=== PATIENT | male | born 1970 | race African-American/Black ===

== ENCOUNTER 2018-11-18 12:10 | Inpatient (IN) | payer OTHER ==
[2018-11-18] MEDS ORDERED: Acetaminophen 325 MG TAB PO PRN (14:03)
[2018-11-18] MEDS ORDERED: Senokot S 8.6-50 MG TAB PO PRN (14:03)
[2018-11-18] MEDS ORDERED: HYDROcodone/Acetaminophen 5/325 mg Tablet PO PRN (14:03)
--- NOTE | 2018-11-18 15:28 | HP ---
PRIMARY CARE PHYSICIAN: Dr. Castillo. CHIEF COMPLAINT: Right-sided weakness, resolved. HISTORY OF PRESENT ILLNESS: Mr. Matute is an 48-year-old male, who reported to the emergency room at [facility] after he experienced about 20-30 minutes of right-sided weakness, right-sided droop, slurred speech. Reports that he was doing his normal daily activities while at work and then he felt "weird," noticed that he was having trouble, he could see his hand, but was having trouble coordinating both his arm and his right leg. Reports that coworkers asked him if he was okay. Reports that they told him he had some slurred speech, that he was not acting himself, and that he was drooling. By the time they called EMS and he reported to the emergency room, he was feeling better. Reports symptoms have resolved. Denied any headache, any current dizziness, any vision changes. Denied any chest pain or shortness of breath. Denies any past medical history. Denies taking any medications daily. The patient was sent to [facility] Emergency Room for admission for a TIA workup. REVIEW OF SYSTEMS: The patient reported right-sided weakness, speech changes, has some slurring of his words, expressive dysphagia, some drooling. Reports that these have resolved. All other symptoms are negative unless mentioned in the HPI. PAST MEDICAL HISTORY: None. PAST SURGICAL HISTORY: None. PSYCHIATRIC HISTORY: None. SOCIAL HISTORY: The patient uses tobacco. He smokes cigars 2 to 3 per day. He is a former drug user, abused marijuana. Denies daily drinking. He reports that he drinks socially once or twice a week. ALLERGIES: NONE. CURRENT MEDICATIONS: None. PHYSICAL EXAMINATION: VITAL SIGNS: Blood pressure is 147/95, pulse is 66, temp is 97.6, O2 sats are 96% on room air. CONSTITUTIONAL: The patient is in no apparent distress. He is alert and oriented to person, place, and time. HEENT: Head is atraumatic and normocephalic. Eyes; eyelids are normal to inspection. Pupils equally round and reactive to light. ENT mucous membranes are moist. Mouth exam is normal. NECK: Normal range of motion. Trachea is midline. RESPIRATORY: Chest expansion is equal. Breath sounds are clear. CARDIOVASCULAR: Regular rate and rhythm. Heart sounds are normal. ABDOMEN: Nontender. Bowel sounds are heard. BACK: Normal inspection. Normal range of motion. No CVA tenderness. EXTREMITIES: Upper extremity, normal range of motion. Strength is normal. Sensation is intact. Radial pulses equal bilaterally. Lower extremity, normal inspection. Normal range of motion. Sensation is intact. Pedal pulses equal bilaterally. NEURO: The patient is oriented to person, place, and time. Speech, he has some mild expressive dysphasia still, could be his normal baseline, but he appeared to have trouble explaining what happened today, although he was certainly alert and oriented. SKIN: Warm, dry, and normal in color. PSYCH: He has a normal affect. IMAGING STUDIES: EKG in the emergency room at [facility] showed sinus nakul with some sinus arrhythmia, 53 beats per minute. [place] is normal. Head CT showed no acute changes. LABORATORY DATA: Lab work largely unremarkable. Glucose was 187. We will put Accu-Cheks and check an A1c for in the morning. ASSESSMENT AND PLAN: 1. Transient ischemic attack. Symptoms appear to be resolved. He has some mild expressive aphasia. We will obtain an echocardiogram, carotid Dopplers, MRI of the brain. We will ask the stroke team to evaluate. Lipids will be checked, TSH, A1c. 2. Gastrointestinal and deep venous thrombosis prophylaxis has been started. 3. Hospital course dependent on clinical findings. Job ID: [id number]
[2018-11-18 15:31] VITALS: BMI 34.2
[2018-11-18] MEDS ORDERED: Dextrose 5% in Water 1,000 ML IV PRN (15:37)
[2018-11-18] MEDS ORDERED: Dextrose 50% Abboject 50 ML SYRINGE SLOW IVP PRN (15:37)
--- NOTE | 2018-11-18 15:46 | ULT ---
BILATERAL CAROTID DUPLEX ULTRASOUND: HISTORY: TIA TECHNIQUE: Grayscale, color-flow and spectral Doppler ultrasound imaging of the extracranial carotid artery syst ems and vertebral arteries was performed bilaterally. FINDINGS: No large amount of echogenic plaque is seen involving the common carotid or internal carotid arteries . The peak systolic velocity in the right ICA measures 64 cm/s. The peak systolic velocity in the righ t CCA measures 87 cm/s. The peak systolic velocity in the left ICA measures 66 cm/s. The peak systolic velocity in the lef t CCA measures 102 cm/s. The right IC/CC ration is0.74. The left IC/CC ratio is 0.65. Vertebral flow: antegrade, bilaterally. . IMPRESSION: No hemodynamically significant stenosis of Both ICAs.
--- NOTE | 2018-11-18 16:11 | MRI ---
MRI Brain WO Con: 11/18/2018 2:07 PM CLINICAL HISTORY: Right-sided weakness. TECHNIQUE: Multiplanar, multisequence images were obtained of the brain. COMPARISON: CT the brain dated 11/18/2018 FINDINGS: Extra axial spaces: Normal in size and morphology for the patient's age. Hemorrhage: None. Ventricular system: Normal in size and morphology for the patient's age. Basal cisterns: Normal. Cerebral parenchyma: Normal. Midline shift: None. Cerebellum: Normal. Brainstem: There is a small focus of restricted diffusion involving the left anterior paramedian kelvin with associated T2 hyperintensity consistent with subacute lacunar infarct in this location. No additional restricted diffusion is evident. OTHER: Calvarium: Normal. Vascular system: Normal. Visualized Paranasal sinuses: Clear. Visualized Orbits: Normal. Visualized upper cervical spine: Normal. Sella and skull base: Normal. IMPRESSION: Subacute left paramedian kelvin lacunar infarct.
[2018-11-18] MEDS: HumaLOG 300 UNITS/3 ML VIAL SC PRN ×2 (18:12→21:40)
[2018-11-18 21:16] LABS: Bacteria/HPF None Seen HPF (None Seen); Bilirubin Negative (Negative); Blood, Urine Trace (Negative); Clarity Clear (Clear); Glucose, Urine (Dipstick) 300 mg/dL (Negative); Leukocyte Negative Leu/uL (Negative); Mucous/LPF Rare LPF (<2+); Nitrite Negative (Negative); Protein, Urine (Dipstick) 70 mg/dL (Neg-Trace); Squamous Epithelial 0-3 HPF (0-3); WBC/HPF 0-3 HPF (0-3)
[2018-11-18 21:19] LABS: Amphetamine Not Detected (NotDetected); Barbiturates Screen Not Detected (NotDetected); Benzodiazepine Screen Not Detected (NotDetected); Cocaine Metabolite Screen Not Detected (NotDetected); Medtox Control Line Valid? VALID (VALID); Medtox Reader # READER 4; Methadone Not Detected (NotDetected); Methamphetamine Not Detected (NotDetected); Opiate Screen Not Detected (NotDetected); Oxycodone Screen Not Detected (NotDetected); Phencyclidine (PCP) Not Detected (NotDetected); THC/Cannabinoid Screen Detected (NotDetected); Tricyclic Screen Not Detected (NotDetected)
[2018-11-18 21:20] LABS: Urine Culture Reflex No No
[2018-11-18] MEDS: Famotidine 20 MG TAB PO SCH (21:33)
[2018-11-18] MEDS: Atorvastatin Calcium 40 MG TAB PO SCH (21:34)
[2018-11-19] MEDS: HumaLOG 300 UNITS/3 ML VIAL SC PRN ×2 (06:14→11:28)
[2018-11-19 07:08] LABS: Hemoglobin 13.6 g/dL (14.0-18.0); Mean Corpuscular Hemoglobin 27.4 pg (27.0-31.0); Mean Corpuscular Volume 85.5 fL (78.0-98.0); Mean Platelet Volume 8.9 fL (7.4-10.4); Platelet Count 155 thou/uL (130-400); RBC Distribution Width 11.9 % (11.5-14.5); Red Blood Cell (RBC) Count 4.97 mill/uL (4.70-6.10); White Blood Cell (WBC) Count 6.2 thou/uL (4.8-10.8)
[2018-11-19 07:14] LABS: ALT (SGPT) 19 U/L (8-55); AST (SGOT) 17 U/L (5-34); Albumin 3.1 g/dL (3.5-5.0); Alkaline Phosphatase 42 U/L (40-150); Anion Gap 10 mmol/L (10-20); BUN (Urea Nitrogen) 13 mg/dL (8.9-20.6); Bilirubin, Total 0.7 mg/dL (0.2-1.2); Calc. Creatinine Clearance 159 mL/min (70-130); Calcium 8.5 mg/dL (7.8-10.44); Carbon Dioxide 25 mmol/L (22-29); Cardiac Risk 7.8 (Less than 4.5); Chloride 106 mmol/L (98-107); Cholesterol 342 mg/dl (< 200 Desired); Estimated GFR-MDRD Greater than 90; Globulin 2.8 g/dL (2.4-3.5); Glucose 160 mg/dL (70-105); HDL Cholesterol 44 mg/dL (>60 Neg Risk); LDL Cholesterol, Calculated 240 mg/dL; Potassium 3.9 mmol/L (3.5-5.1); Protein, Total 5.9 g/dL (6.0-8.3); Sodium 137 mmol/L (136-145); Triglycerides 289 mg/dL (Less than 150)
[2018-11-19 07:48] LABS: Hypochromia SLIGHT = 6-15 cells (100X) (0-5/hpf); Lymphocytes 56 % (21-51); MDiff Complete? YES; Monocytes 6 % (0-10); Neutrophil 32 % (42-75); Platelet Morphology Comment Appears Adequate; Reactive Lymphocytes 6 % (0-10)
--- NOTE | 2018-11-19 08:18 | PDOC.PN ---
- Subjective Encounter Start Date: 11/19/18 Encounter Start Time: 08:15 Subjective: Patient with no symptoms at present. Denies any complaints. -: Has had no further numbness/weakness. Denies any n/v. No headaches or -: dizziness. Tolerating food intake. - Objective Vital Signs & Weight: Vital Signs (12 hours) Temp Pulse Resp BP Pulse Ox 11/19/18 07:00 98.2 F 60 20 140/81 94 L 11/19/18 03:30 98.2 F 65 20 176/98 H 95 11/18/18 23:45 97.9 F 61 20 164/77 H 97 Weight Weight 238 lb 8 oz Result Diagrams: 11/19/18 06:38 11/19/18 06:38 Additional Labs: Accuchecks 11/19/18 11/18/18 11/18/18 05:23 21:40 16:40 POC Glucose 156 H 198 H 209 H Phys Exam - Physical Examination Constitutional: NAD HEENT: PERRLA, moist MMs, sclera anicteric, oral pharynx no lesions Neck: no nodes, supple, full ROM Respiratory: no wheezing, no rhonchi, clear to auscultation bilateral Cardiovascular: RRR Gastrointestinal: soft, non-tender, no distention, positive bowel sounds obese Musculoskeletal: no edema, pulses present Neurological: non-focal, normal sensation, moves all 4 limbs Psychiatric: normal affect, A&O x 3 Skin: no rash Dx/Plan (1) Lacunar infarct, acute Code(s): I63.81 - OTHER CEREB INFRC DUE TO OCCLS OR STENOSIS OF SMALL ARTERY Status: Acute Plan: Asymptomatic at present. Awaiting Neuro. Continue ASA. (2) New onset type 2 diabetes mellitus Code(s): E11.9 - TYPE 2 DIABETES MELLITUS WITHOUT COMPLICATIONS Status: Acute Plan: Agb A1C 8% Metformin 500 mg PO QPM-WM. Will follow-up with PCP for further management. Continue to monitor glucose. (3) Dyslipidemia Code(s): E78.5 - HYPERLIPIDEMIA, UNSPECIFIED Status: Acute Plan: Continue statin. We discussed lifestyle modifications, states he enjoys fried chicken the most, will attempt to implement lifestyle modifications at discharge and fup with PCP. (4) Hypertension Code(s): I10 - ESSENTIAL (PRIMARY) HYPERTENSION Status: Acute Qualifiers: Hypertension type: essential hypertension Qualified Code(s): I10 - Essential (primary) hypertension Plan: States tends to run in high 130s systolic. Does not regularly check his BP. Asymptomatic with elevated BP this am (176/98). Will start him on Amlodipine 5 mg PO daily. - Plan cont current plan of care, out of bed/ambulate * .
[2018-11-19] MEDS: Amlodipine 5 MG TAB PO SCH (08:50)
[2018-11-19] MEDS: Enoxaparin Sodium 40 MG/0.4 ML SYRINGE SC SCH (08:51)
[2018-11-19] MEDS: Aspirin 325 mg Enteric Coated Tablet PO SCH (08:51)
[2018-11-19] MEDS: Famotidine 20 MG TAB PO SCH ×2 (08:52→20:31)
--- NOTE | 2018-11-19 10:58 | CON ---
DATE OF CONSULTATION: 11/19/2018 CONSULTING PHYSICIAN: Hospitalist Service. IMPRESSION: 1. Lacunar stroke in the kelvin. 2. Undiagnosed diabetes. 3. Borderline hypertension. PLAN: 1. Aspirin 81 mg per day. 2. Low-dose statin. 3. Address blood sugar. 4. Monitor blood pressure. HISTORY OF PRESENT ILLNESS: Mr. Matute is a 48-year-old man, who came in with acute onset of right hemiparesis and slurred speech. His symptoms came on while he was at work. He called for his to pick him up and he started seeing an improvement in his strength on the way to the hospital. He was subsequently admitted. Initially, he was a bit hypertensive with diastolics from 98. He had an MRI of the brain done, which showed subacute lacunar infarction in the kelvin. His carotid ultrasound did not show any stenosis. LABORATORY STUDIES: Notable for blood sugars ranging from 150 to 200 with an A1c of 8.0. Total cholesterol is 342 with a risk ratio of 7.8. PAST MEDICAL HISTORY: Otherwise negative. ALLERGIES: NONE. SOCIAL HISTORY: He smokes cigars. FAMILY HISTORY: Noncontributory. REVIEW OF SYSTEMS: Ten-system review of systems is otherwise negative. PHYSICAL EXAMINATION: GENERAL: He is a healthy-appearing middle-aged man, in no distress. VITAL SIGNS: Blood pressure 140/81, pulse 60, respirations 20, temperature 98.2. HEENT: Pupils equal and reactive. Conjunctivae clear. Oropharynx clear. NECK: Supple. EXTREMITIES: No cyanosis, clubbing, or edema. NEUROLOGIC: He is alert and appropriate. His speech is fluent and clear. Cranial nerves 2 through 12 are intact. Motor exam showed good strength bilaterally. There is no tremor or dysmetria present. He can walk independently. Sensations intact to touch. IMAGING STUDIES: EKG showed sinus rhythm. SUMMARY: This is a middle-aged gentleman with probable undiagnosed diabetes, hyperlipidemia, and possibly hypertension with secondary lacunar stroke. He has recovered nicely and appears stable for discharge after these issues are addressed. Job ID: [id number]
[2018-11-19] MEDS ORDERED: metFORMIN 500 MG TAB PO SCH (17:00)
[2018-11-19] MEDS: Atorvastatin Calcium 40 MG TAB PO SCH (20:31)
[2018-11-20] MEDS: Aspirin 325 mg Enteric Coated Tablet PO SCH (09:00)
[2018-11-20] MEDS: Amlodipine 5 MG TAB PO SCH (09:00)
[2018-11-20] MEDS: Enoxaparin Sodium 40 MG/0.4 ML SYRINGE SC SCH (09:00)
[2018-11-20] MEDS: Famotidine 20 MG TAB PO SCH (09:00)
[2018-11-20 12:11] VITALS: BP 160/98; TEMP 98.3
--- NOTE | 2018-11-21 02:58 | SS ---
DATE OF ADMISSION: 11/18/2018 DATE OF DISCHARGE: 11/20/2018 PRIMARY CARE PHYSICIAN: Dr. Montesinos. CONSULTANTS: Dr. Bustillos, Neurology. PROCEDURES: 1. The patient had an MRI of the brain, which showed subacute left paramedian kelvin lacunar infarct. 2. Echocardiogram, LVEF estimated at 55% to 60%. E/A flow reversal noted suggestive of diastolic dysfunction. Mild mitral regurg is present, mild tricuspid regurgitation present. 3. The patient also had a carotid Doppler study, which was negative for any significant stenosis of both ICAs. HOSPITAL COURSE: Mr. Matute is a 48-year-old man who reported initially to [facility] after he was working on Tuesday and experienced a 20-30 minute event of right-sided weakness, right-sided facial droop, and slurred speech. By the time he got to the emergency room in [place], he was feeling better. He denied any chest pain or shortness of breath at that time. Reported that he did not really go to the doctor and did not report any past medical history. Initial brain CT had no acute findings and he was sent to [facility] for admission and further management. During admission, MRI showed a subacute lacunar infarct. Dr. Bustillos was consulted and recommended aspirin 81 mg, low-dose statin, and then recommended treatment of undiagnosed diabetes and hypertension that was reported here. A1c that was checked on 11/19, was 8. Blood pressure while he was here in the 160s to 170s systolic. He was started on amlodipine and also started on some metformin q.p.m. Blood sugars improved. The patient's triglycerides 289, cholesterol 342, and statins were also started on this visit. The patient was examined today prior to discharge. States he feels much better. Extensive counseling was given on diabetes management. Asked to get a blood pressure cuff so he could check that at home and take it with him to his primary care physician and to visit with him, Dr. Montesinos within the next week and to follow up with Dr. Bustillos at his next available appointment. ALLERGIES: NONE. HOME MEDICATIONS: He did not take any medications prior to this visit. He will be sent home on: 1. Aspirin 81 mg p.o. daily. 2. Lipitor 40 mg p.o. at bedtime. 3. Lisinopril 10 mg p.o. daily. 4. Metformin 500 mg p.o. b.i.d. DISPOSITION: Home. DISCHARGE CONDITION: Stable. FOLLOWUP INSTRUCTIONS: The patient was instructed to follow up with Dr. Montesinos within the next week. Instructed to black pickler and fill his prescriptions that were prescribed today. Instructed to get blood pressure monitored if at all possible, to take at least twice a day and record those findings and take that with him to his Dr. Montesinos's visit. He should also follow up with Dr. Bustillos at his next available appointment. Counseling was given for his A1c of 8. We will prescribe the metformin for him, but he should also try and alter his diet. Reports that he drinks a lot of sodas. We have instructed him to substitute water and sweet tea and also to eat a diet of protein complex carbs and to exclude as much sugar as he possibly can and then also to get 30 minutes of exercise once a day at least 3 times per week. The patient was agreeable to these lifestyle changes. Job ID: [id number]
== END 2018-11-20 14:38 | disposition home or self-care (01) | DRG 65 ==
LOC: ERS 12:10 → 2SE 12:25 → OBSVTOIN 12:25
PROVIDERS: ADMIT Internal Medicine; ATTEND Internal Medicine
DX: I63.81 Other cerebral infarction due to occlusion or stenosis of small artery (principal); G81.91 Hemiplegia, unspecified affecting right dominant side; R29.810 Facial weakness; R47.81 Slurred speech; R29.700 NIHSS score 0; F17.210 Nicotine dependence, cigarettes, uncomplicated; E78.5 Hyperlipidemia, unspecified; E11.9 Type 2 diabetes mellitus without complications; I10 Essential (primary) hypertension
CPT/HCPCS: 36415; 36416; 70551; 80053; 80061; 80306; 81001; 83036; 84443; 85025; 93306; 93880; J1650

== ENCOUNTER 2023-11-18 04:19 | Inpatient (IN) | payer OTHER, SELFPAY ==
[2023-11-18 07:03] VITALS: BMI 29.7
[2023-11-18] MEDS ORDERED: Ondansetron PF 4 MG/2 ML Vial IVP PRN (07:43)
[2023-11-18] MEDS ORDERED: Acetaminophen 325 MG TAB PO PRN (07:43)
[2023-11-18 08:25] LABS: Hemoglobin A1c 10.1 % (4.0-6.0)
[2023-11-18] MEDS: Ampicillin/Sulbactam 3 GM in Sodium Chloride 0.9% 100 ML IVPB SCH (08:49)
[2023-11-18] MEDS: Famotidine 20 MG TAB PO SCH (08:50)
[2023-11-18] MEDS ORDERED: Dextrose 50% Abboject 50 ML SYRINGE SLOW IVP PRN (09:22)
[2023-11-18] MEDS ORDERED: Dextrose 5% in Water 1,000 ML IV PRN (09:22)
[2023-11-18] MEDS ORDERED: Glucagon 1 MG/ML KIT IM PRN (09:22)
[2023-11-18] MEDS ORDERED: hydrALAZINE 20 MG/ML VIAL SLOW IVP PRN (09:22)
[2023-11-18] MEDS: Sodium Chloride 0.9% 1,000 ML IV SCH (09:32)
[2023-11-18] MEDS: Amlodipine 5 MG TAB PO SCH (09:32)
[2023-11-18] MEDS ORDERED: Ketorolac Tromethamine 30 MG (1 mL) VIAL IVP PRN (10:00)
[2023-11-18] MEDS: Insulin Lispro 100 UNIT/ML 10 ML VIAL SC PRN (11:32)
[2023-11-18 11:42] VITALS: BP 143/83; TEMP 98.4
[2023-11-18] MEDS ORDERED: Atorvastatin Calcium 40 MG TAB PO SCH (21:00)
[2023-11-19] MEDS ORDERED: Dexamethasone 4 mg/ml Vial SLOW IVP SCH (09:00)
[2023-11-19] MEDS ORDERED: Amlodipine 5 MG TAB PO SCH (09:00)
[2023-11-19] MEDS ORDERED: Aspirin 81 mg Enteric Coated Tablet PO SCH (09:00)
== END 2023-11-18 15:56 | disposition home or self-care (01) | DRG 153 ==
LOC: SURG A 04:19 → OBSVTOIN 07:43
PROVIDERS: ADMIT Student in an Organized Health Care Education/Training Program; ATTEND Internal Medicine
DX: J36 Peritonsillar abscess (principal); E11.9 Type 2 diabetes mellitus without complications; I10 Essential (primary) hypertension; E78.5 Hyperlipidemia, unspecified; J35.1 Hypertrophy of tonsils; G47.33 Obstructive sleep apnea (adult) (pediatric)
CPT/HCPCS: 36415; 36416; 83036; 86141; J0295; J1815; J3490; J7050